=== PATIENT | female | born 1965 | race Caucasian/White ===

== ENCOUNTER → 2018-09-25 07:02 | Outpatient (CLI) | payer MEDICAID, SELFPAY ==
--- NOTE | 2018-09-25 10:33 | NEURO_ITS ---
NCS and/or EMG Patient Report Ordering Doctor: Pranav Best DATE OF SERVICE: 09/25/18 This is a bilateral upper extremity nerve conduction study and a upper extremity EMG performed on this 53-year-old female with pain in her hands bilaterally worse on the right. She has a remote whiplash injury but no neck pain current ly. Current symptoms been present for more than 2 years. Bilateral upper extremity sensory and motor nerve conduction studies are performed. There is severe prolongation of the median motor responses bilaterally more so on the right side with preserved amplitudes and mildly slowed conduction velocities on the right. The sensory responses are also prolonged again worse on the right side. The ulnar motor and sensory and radial sensory responses are normal. The right median F wave is moderate to severely prolonged in the left median F wave is mildly prolonged. Right upper extremity needle electromyography is performed. Muscles evaluated included the first dorsal interosseous, abductor pollicis brevis, brachioradialis, biceps, triceps and deltoid muscles. The abductor pollicis brevis muscle did demonstrate large motor units with slight increased insertional activity. All other muscles demonstrated normal insertional activity with absence of pathologic spontaneous activity. Motor unit potential recruitment pattern and amplitude was otherwise normal. Impression: Abnormal electrophysiologic study consistent with carpal tunnel syndrome bilaterally, severe bilaterally but worse on the right side. There is no evidence of radiculopathy.
--- OUTSIDE RECORDS SUMMARY | 2018-11-27 07:10 | XMS RPT_ITS ---
:1965 Author Organization OHIP Care Team Providers Name Role Phone BRETT CAMPOS, MS. WYATT SKathryn Attending Unavailable BRETT CAMPOS, MS. WYATT S. Primary Care Unavailable BRETT AUTOMOTIVE SALESPERSON, MS. WYATT S. Attending Unavailable BRETT CAMPOS, MS. WYATT S. Primary Care Unavailable BRETT CAMPOS, MS. WYATT S. Attending Unavailable BRETT CAMPOS, MS. WYATT S. Primary Care Unavailable BRETT AUTOMOTIVE SALESPERSON, MS. WYATT S. Attending Unavailable BRETT AUTOMOTIVE SALESPERSON, MS. WYATT S. Primary Care Unavailable BRETT AUTOMOTIVE SALESPERSON, MS. WYATT S. Attending Unavailable BRETT CAMPOS, MS. WYATT S. Primary Care Unavailable Pranav Best Attending Unavailable Pranav Best Referring Unavailable Wyatt West TORTS LAW PROFESSOR-C Primary Care Unavailable PROBLEMS PROBLEMS DATE TYPE CONDITION / CODE ATTENDING STATUS SOURCE 02/13/2018 Admitting Other fatigue / BRETT CAMPOS, MS. Active [facility] Diagnosis R53.83(ICD-10) WYATT Logan Repository 02/13/2018 Admitting Encounter for BRETT CAMPOS MS. Active [facility] Diagnosis general adult WYATT Logan medical Repository examination without abnormal findings / Z00.00(ICD-10) 11/17/2017 Admitting Encounter for BRETT CAMPOS MS. Active [facility] Diagnosis screening for WYATT Logan malignant Repository neoplasm of cervix / Z12.4(ICD-10) PROCEDURES PROCEDURES No Procedure Records FoundRESULTS RESULTS NCS AND/OR EMG Observed: 09/26/2018 Status: F Source: [facility] PATIENT 9:55 AM [facility] [place] [facility] Pulmonary Services/Neurology [address] [place] [address] MR#: [id number] Acct: [id number] Name: RADHA ARTIS Rep #: [id number] : 1965 53 From: Johnathon Nuno MD Referring Dr: Pranav Best MD Status: REG CLI Ordering Dr: Date: Location: [facility] Sex: F C NCS and/or EMG Patient Report Ordering Doctor: Pranav Best DATE OF SERVICE: 09/25/18 This is a bilateral upper extremity nerve conduction study and a upper extremity EMG performed on this 53-year-old female with pain in her hands bilaterally worse on the right. She has a remote whiplash injury but no neck pain currently. Current symptoms been present for more than 2 years. Bilateral upper extremity sensory and motor nerve conduction studies are performed. There is severe prolongation of the median motor responses bilaterally more so on the right side with preserved amplitudes and mildly slowed conduction velocities on the right. The sensory responses are also prolonged again worse on the right side. The ulnar motor and sensory and radial sensory responses are normal. The right median F wave is moderate to severely prolonged in the left median F wave is mildly prolonged. Right upper extremity needle electromyography is performed. Muscles evaluated included the first dorsal interosseous, abductor pollicis brevis, brachioradialis, biceps, triceps and deltoid muscles. The abductor pollicis brevis muscle did demonstrate large motor units with slight increased insertional activity. All other muscles demonstrated normal insertional activity with absence of pathologic spontaneous activity. Motor unit potential recruitment pattern and amplitude was otherwise normal. Impression: Abnormal electrophysiologic study consistent with carpal tunnel syndrome bilaterally, severe bilaterally but worse on the right side. There is no evidence of radiculopathy. 09/26/18 0955 <Electronically signed by Johnathon Nuno MD> Date Johnathon Nuno MD CC: Wyatt West NP-C; Johnathon Nuno MD; Pranav Best MD Date Dictated: 09/25/18 1020 Date Transcribed: 09/25/18 1020 Ripsaw Grader: NF Signed XR KNEE 4 VIEWS Observed: 08/15/2018 Status: F Source: [employer] RIGHT 9:54 AM [facility]OUNDATION REPOSITORY ORIGINAL RIGHT knee 4 views including tunnel and sunrise views hx: Pain COMPARISON: None Very mild narrowing of the medial joint compartment is evident. No other significant degenerative change seen. No fracture, dislocation or joint fluid seen. Interpreted By: Maxim Delgado MD Preliminary Report By: Maxim Delgado MD Electronically Signed By: Maxim Delgado MD Dictated Date: 08/15/2018 11:01:00 AM Prelim Date: 08/15/2018 11:01:00 AM Sign Date: 08/15/2018 11:01:31 AM VL VENOUS UNILATERAL Observed: 08/07/2018 Status: F Source: [employer] LOWER EXT FOR DVT 12:05 PM FOUNDATION REPOSITORY ORIGINAL VL VENOUS UNILATERAL LOWER EXT FOR DVT LATERALITY: Right CLINICAL STATEMENT: pain COMPARISON: None TECHNIQUE: Duplex venous ultrasonography including color and spectral flow Doppler imaging was performed of the lower extremity, focusing on the deep venous system. FINDINGS: The common femoral, femoral, popliteal, gastrocnemius, posterior tibial, peroneal, and saphenous veins demonstrate wide patency, expected augmentation, and normal spectral waveforms. Incidentally noted is a varicose vein with thrombosis behind the knee. IMPRESSION: 1. No evidence of deep venous thrombosis. 2. Incidental thrombosed varicose vein behind the knee. Interpreted By: Dennis Pickard MD Preliminary Report By: Dennis Pickard MD Electronically Signed By: Dennis Pickard MD Dictated Date: 08/07/2018 4:16:58 PM Prelim Date: 08/07/2018 4:16:58 PM Sign Date: 08/07/2018 4:19:38 PM CBC Collected: 02/13/2018 Status: F Source: [facility] 10:01 [facility] REPOSITORY TYPE CODE TESTS RESULT OUT OF REFERENCE UNITS RANGE LAB WBC(LOINC) 4.60-10.80 10 3/mcL Low WBC 3.80 LAB RBCCT(LOINC 4.20-5.40 10 6/mcL ) RBC 4.22 LAB HGB(LOINC) 12.0-16.0 G/dL Hgb 13.2 LAB HCT(LOINC) 37.0-47.0 % Hct 38.0 LAB MCV(LOINC) 80.0-94.0 fL MCV 90.0 LAB MCH(LOINC) 27.0-31.2 pg High MCH 31.3 LAB MCHC(LOINC) 33.0-37.0 G/dL MCHC 34.8 LAB RDW(LOINC) 11.5-14.5 % RDW 12.7 LAB PLT(LOINC) 130-400 10 3/mcL Platelet 184 LAB MPV(LOINC) 7.4-10.4 fL MPV 8.7 Performed By: #### CBC, ADIFF, ANEU, LIPID, CMP, GFR, TSH #### [address] [address] .AUTO DIFF Collected: 02/13/2018 Status: F Source: [facility] 10:01 [facility] REPOSITORY TYPE CODE TESTS RESULT OUT OF REFERENCE UNITS RANGE LAB ROSAMARIA(LOINC) 37.0-80.0 % Neutrophil % 55.7 LAB LYM(LOINC) 10.0-50.0 % Lymphocyte % 31.9 LAB MON(LOINC) 1.7-13.0 % Monocyte % 9.5 LAB EO(LOINC) 0.0-7.0 % Eosinophil % 1.5 LAB BAS(LOINC) 0.0-2.5 % Basophil % 1.4 LAB ABLYM(LOIN 0.77-3.85 10 3/mcL C) Lymphocyte, 1.20 Absolute LAB CUCO(LOINC 0.15-1.00 10 3/mcL ) Monocyte, 0.40 Absolute LAB AEOS(LOINC 0.00-0.40 10 3/mcL ) Eosinophil, 0.10 Absolute LAB ABAS(LOINC 0.00-0.19 10 3/mcL ) Basophil, 0.10 Absolute Performed By: #### CBC, ADIFF, ANEU, LIPID, CMP, GFR, TSH #### [address] [place], [place] [address] .NEUABS Collected: 02/13/2018 Status: F Source: [facility] 10:01 AM [facility] REPOSITORY TYPE CODE TESTS RESULT OUT OF REFERENCE UNITS RANGE LAB ANEU(LOINC) 2.85-6.16 10 3/mcL Low Neutrophil, 2.10 Absolute Performed By: #### CBC, ADIFF, ANEU, LIPID, CMP, GFR, TSH #### [facility] [address] [place], [place] [address] LIPID Collected: 02/13/2018 Status: F Source: [facility] 10:01 AM [facility] REPOSITORY TYPE CODE TESTS RESULT OUT OF REFERENCE UNITS RANGE LAB CHOL(LOINC 131-200 mg/dL ) Cholesterol 161 Result Comment: Cholesterol Reference Interval: Less than 200 Desirable 200-239 Borderline high risk 240 and above High risk LAB TRIG(LOINC) 40-150 mg/dL Triglycerides Low 36 Result Comment: Triglyceride Reference Interval: Less than 150 Normal 150-199 Borderline high risk 200-499 High risk 500 or higher Very high risk LAB HD(LOINC) 35-90 mg/dL HDL Cholesterol 81 Result Comment: HDL Reference Interval: Less than 40 Low - high risk 60 or above Optimal/lowers risk LAB LDL(LOINC) 0-130 mg/dL LDL Cholesterol 73 Result Comment: LDL is a calculated result and requires a 12-hr fast. LDL Reference Interval: Less than 100 Optimal 100-129 Near or above optimal 130-159 Borderline high risk 160-189 High risk 190 and above Very high risk Performed By: #### CBC, ADIFF, ANEU, LIPID, CMP, GFR, TSH #### [address] [place], [place] [address] CMP Collected: 02/13/2018 Status: F Source: [facility] 10:01 AM [facility] REPOSITORY TYPE CODE TESTS RESULT OUT OF REFERENCE UNITS RANGE LAB GLU(LOINC) 70-105 mg/dL Glucose Level 93 LAB NA(LOINC) 136-146 mEq/L Sodium Level 140 LAB K(LOINC) 3.5-5.1 mEq/L Potassium Level 4.0 LAB CL(LOINC) 98-107 mEq/L Chloride 102 LAB CO2(LOINC) 22-29 mEq/L CO2 High 30 LAB EBAL(LOINC mEq/L ) Electrolyte Balance 8.0 LAB BUN(LOINC) 7.0-18.0 mg/dL BUN 9.3 LAB CRE(LOINC) 0.6-1.2 mg/dL Creatinine Lvl (s) 0.7 LAB BC(LOINC) 7-27 ratio BUN/Creatinine 13 Ratio LAB CA(LOINC) 8.4-10.2 mg/dL Calcium Lvl 9.3 LAB PROT(LOINC 6.0-8.3 G/dL ) Total Protein 6.9 LAB ALB(LOINC) 3.5-5.0 G/dL Albumin Level 4.6 LAB GLB(LOINC) G/dL Globulin 2.3 LAB AG(LOINC) 1.1-2.5 ratio A/G Ratio 2.0 LAB BILT(LOINC 0.2-1.0 mg/dL ) Bili Total 0.4 LAB AP(LOINC) 40-135 IU/L Alk Phos 43 LAB AST(LOINC) 10-40 IU/L AST/SGOT 18 LAB ALT(LOINC) 10-35 IU/L ALT/SGPT 13 Performed By: #### CBC, ADIFF, ANEU, LIPID, CMP, GFR, TSH #### [place] [address] .GFR Collected: 02/13/2018 Status: F Source: [facility] 10:01 AM [facility] REPOSITORY TYPE CODE TESTS RESULT OUT OF REFERENCE UNITS RANGE LAB GFRAA(LOINC ml/min/1.73 ) sqm GFR 114 Faroese Result Comment: GFR Population mean for , Non- Americans Ages 20-29 = 116 mL/min/1.73 sq.m. Ages 30-39 = 107 mL/min/1.73 sq.m. Ages 40-49 = 99 mL/min/1.73 sq.m. Ages 50-59 = 93 mL/min/1.73 sq.m. Ages 60-69 = 85 mL/min/1.73 sq.m. Ages 70+ = 75 mL/min/1.73 sq.m. Chronic Kidney Disease: Less than 60 mL/min/1.73 square meters End Stage Renal Disease: Less than 15 mL/min/1.73 square meters LAB GFRNO(LOINC) ml/min/1.73sqm GFR Non- >60 Result Comment: GFR Population mean for , Non- Americans Ages 20-29 = 116 mL/min/1.73 sq.m. Ages 30-39 = 107 mL/min/1.73 sq.m. Ages 40-49 = 99 mL/min/1.73 sq.m. Ages 50-59 = 93 mL/min/1.73 sq.m. Ages 60-69 = 85 mL/min/1.73 sq.m. Ages 70+ = 75 mL/min/1.73 sq.m. Chronic Kidney Disease: Less than 60 mL/min/1.73 square meters End Stage Renal Disease: Less than 15 mL/min/1.73 square meters Performed By: #### CBC, ADIFF, ANEU, LIPID, CMP, GFR, TSH #### [address] [place], [place] [address] TSH Collected: 02/13/2018 Status: F Source: [facility] 10:01 AM [facility] REPOSITORY TYPE CODE TESTS RESULT OUT OF RANGE REFERENCE UNITS LAB TSH(LOINC) 0.27-4.20 mcIU/mL TSH 4.06 Performed By: #### CBC, ADIFF, ANEU, LIPID, CMP, GFR, TSH #### [address] [address] TACK COVERER CYTOLOGY REPORT Observed: 11/17/2017 Status: F Source: [facility] 10:47 AM [facility] REPOSITORY . Pathology Reports Accession: Collected Date/Time: Received Date/Time: Pathologist: [id number] 11/17/2017 10:47 EDT 11/17/2017 18:00 EDT [employer] Sandblaster Apprentice Cytology Report SPECIMEN: Specimen Description: Liquid Prep Reflex ASCUS Specimen: Vaginal Screening or Diagnostic: Screening RELEVANT HISTORY: LMP: 12-06-11 Hysterectomy: Yes [id number] SPECIMEN ADEQUACY: SATISFACTORY FOR EVALUATION TRANSFORMATION ZONE COMPONENT ABSENT DUE TO PREVIOUS HYSTERECTOMY INTERPRETATION/RESULTS: NEGATIVE FOR INTRAEPITHELIAL LESION OR MALIGNANCY Electronically Signed by Pathology report verified by [facility] Screened by: KK Electronically signed by Ngoc SNYDER (ASCP) Sign-Out Date: 11/22/2017 11:46 Performing Lab: [facility], [address] [place] [address] Disclaimer The Pap test is a screening test for cervical cancer. As evidenced by published data, it is subject to both inherent false negative and false positive results. Your patient's results should be interpreted in context with pertinent clinical history including gynecological examination. Performed By: #### GYCR #### [facility] [address] [place] [address] [place] MAMMOGRAM SCREENING Observed: 11/17/2017 Status: F Source: [facility] BILATERAL W/DIMPLE 9:30 AM FOUNDATION REPOSITORY ORIGINAL FROM: [facility] [address] [address] PROCEDURE FOR: RADHA ARTIS [address] [place] [address] Home: PID#: [id number] Exam#: [id number] : 1965 Age: 52 TO: WYATT WEST TORTS LAW PROFESSOR-C [address] [place] [address] #[id number] DIGITAL SCREENING MAMMOGRAM 3D/2D WITH CAD WITH MEDIOLATERAL OBLIQUE CRANIOCAUDAL: 11/17/2017 Comparison is made to exams dated: 11/24/2016 mammogram, 11/17/2016 mammogram, 12/11/2014 ultrasound, and 12/10/2014 mammogram - [facility]. The tissue of both breasts is extremely dense. Current study was also evaluated with a Computer Aided Detection (CAD) system. There are benign calcifications in both breasts. There also is a biopsy clip in the left breast. No significant masses, calcifications, or other findings are seen in either breast. There has been no significant interval change. IMPRESSION: BENIGN There is no mammographic evidence of malignancy. A 1 year screening mammogram is recommended. DAVID DURÁN MD cc/penrad:11/17/2017 16:37:39 Flight Inspector: CHAZ NUNES (Rosendo)(M), [facility] letter sent: Normal BI-RADS 1&2 Mammogram BI-RADS: 2 Benign ALLERGIES ALLERGIES DATE TYPE / CODE NAME / CODE REACTION SEVERITY SOURCE 01/01/2015 Drug No Known Unknown [facility] Allergy/4160 Allergies/F00 Hospital 24758(SNOMED 6150106(RXNOR Repository CT) M) ENCOUNTERS ENCOUNTERS ADMIT/DISCHARGE ACCOUNT NUMBER ADMITTING ENCOUNTER LOCATION SOURCE CLASS 09/25/2018 [id number] Ambulatory General acute hospital ding:PSN Repository 08/15/2018/08/15/20 [id number] Ambulatory B[facility] Repository 08/07/2018/08/07/20 [id number] Ambulatory BBuilding:[facility] Repository 02/13/2018/02/18/20 [id number] Ambulatory [address] ding:DROP [facility] Repository 11/17/2017/11/22/19 [id number] Ambulatory [address] ding:DROP [facility] Repository 11/17/2017/11/18/19 [id number] Ambulatory [address] ding:RAD [facility] Repository PAYERS PAYERS ENCOUNTER GUARANTOR PAYER SUBSCRIBER SOURCE 09/25/2018 RADHA A Primary RADHA D[address] [place] [address] [address] [facility] [id number], [place] PLANPolicy Number: Repository [id number]: 330 [id number] () Date:[id number] [address] [place] [address]GB: 09/25/2018 [facility]:SELF PAY [facility] Number: Effective Repository Date:2018 08/15/2018 [facility] E HEALTH PLANPolicy [id number] [place] [address] Number: [place] [id number], [place] [address] Date:2018-08-15 [id number]: [phone] [email or web address] [id number] [phone] el: [phone]) Name:X[address] () [address] [place] [address] [place] [phone] (WP) (HP)Tel: [phone]: (wp) [phone] 08/07/2018 RADHA A Primary [facility]:NASRIN HOBSON: [facility] E HEALTH PLANPoly [id number] Repository [facility] Number: Jose [address] [place] [id number] [address]~ghanshyam Date:2018-08-07Tel: [phone] [email or web address] [phone] el: [phone]) Name:[address] (HP) ) [phone] [address], [place] [phone] (WP) (HP)Tel: [phone]: ([phone] 02/13/2018 RADHA Dae Primary [facility]ae [facility]:NASRIN HOBSON: [facility] [id number] Repository [facility] Number: Jose [address] [place] [id number] [place], [place] [address]Fpr: ([phone]) Date:2018-02-13Tel: [id number] [phone] (HP)Tel: [phone]) Name:[address] (HP) (WP) [address], [place] [phone] (WP) [phone]: 11/17/2017 RADHA Dae Primary RADHA Dae [facility] Insurance:NASRIN HOBSON: [facility] E HEALTH PLANPolboone [facility] hospital [id number] Repository [facility] Number: [address] [place] [id number] [place], [place] [address]Vzu: [phone]) Date:2017-11-1791607Xzl: 2022-13-63Ksva [phone] (HP)Tel: [phone]) Name:[address] (HP) (WP) [address]ME[address] [place] [phone] (WP) [phone]: 11/17/2017 [facility]: [facility] [id number] E HEALTH PLANPolboone county hospital [id number] [facility] Number: Jose [place], [place] [id number] WELIA [place], [place] [address]Idf: ([phone]) Date:2017-10-0298333Mrp: [id number] [phone] (HP)Tel: [phone]) Name:CONNERO Raciel (HP) (WP) 5[address]ME[address]HANA [place] [phone] (WP) [phone]:
== END ==
PROVIDERS: Family Provider Nurse Practitioner Primary Care; PCP Nurse Practitioner Primary Care; Referring Provider Specialist; Visit Provider Specialist
DX: G56.01 Carpal tunnel syndrome, right upper limb (principal)
CPT/HCPCS: 95886; 95911

== ENCOUNTER 2018-11-07 05:56 | Day surgery (SDC) | payer MEDICAID, SELFPAY ==
[2015-01-01 22:55] VITALS: BMI 19.8
--- NOTE | 2018-10-31 20:54 | HP.PCM_ITS ---
History and Physical DATE OF SURGERY: 1. Right carpal tunnel release: November 07, 2018 2. Left carpal tunnel release: November 28, 2018 SCHEDULED PROCEDURE: right carpal tunnel release followed by left carpal tunnel release HISTORY OF PRESENT ILLNESS: This is a 52-year-old female who has been having ongoing Bilateral hand pain for approximately 2 years. Patient is right-hand dominant. Patient states she does have pain in bilateral hands but the numbness and tingling is worse than the pain. Pain does awaken her at night. Patient works as a home health aide. With activity her pain can reach as high as an 8/10. Patient states her symptoms with numbness and tingling and pain are increased with repetitive use and activities of daily living. Patient has tried racing at nighttime with minimal relief. Patient underwent an EMG nerve conduction study exam a [facility] which does reveal bilateral severe carpal tunnel syndrome with the right being worse than the left. No evidence of radiculopathy. After failing conservative measures and discussing treatment options with Dr. Pranav Best, the patient would like to proceed with a right carpal tunnel release on November 07, 2018 followed by a left carpal tunnel release on November 28, 2018. Patient denies any chest pain, shortness of breath, fevers chills, recent infections. REVIEW OF SYSTEMS: ROS: Const: Denies change in appetite, fever,or weight change. CV: Denies chest pain, heart murmur and irregular heartbeat. Resp: Denies cough, pneumonia, SOB, tuberculosis and wheezing. GI: Denies constipation, diarrhea, difficulty swallowing, heartburn, nausea, bloody stools and vomiting. : Urinary: denies incontinence. Musculo: Denies leg swelling, limp, trouble walking and weakness. Skin: Denies Raynaud's, history of shingles and tattoo. Neuro: Reports numbness/tingling but denies ambulatory dysfunction, dizziness and tremor. Psych: Denies anxiety, insomnia and stress. Georges/Lymph: Denies anemia, bleeding/bruising tendency and past transfusion. Reviewed, no changes. PAST MEDICAL HISTORY: Advance Care Plan: No Advance Directives Effective Date: 08/30/2018 PMH: Medical Problems: No Current Problems Accidents: None Surgical Hx: Hysterectomy LT Thumb Trigger Release - (12/02/2016) [email or web address] Anesthesia Complications: Nausea Assistive Devices: None Reviewed, no changes. 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 Personal Habits: Cigarette Use: Never Smoked Cigarettes.Alcohol: Denies use.Drug Use: Denies Use.Enjoy Exercising: Daily. Reviewed and updated. VITALS: Ht: 64 Wt: 115lb Wt k.164 BMI: 19.7 BP: 122/56 Pulse: 74 Resp: 16 T: 98.2 T: 36.8C ALLERGIES: No Known Drug Allergy MEDICATIONS: Vitamin C 1000 mg one PO daily, Iron 325 (65 Fe) MG 1 by mouth every day, Ultram 50 mg 1-2 by mouth q6 hour as needed pain PRE-OP EXAM: General appearance:NORMAL Other: Eyes: Conjunctivae and lids: NORMAL Pupils: ERR Ears, Nose, Mouth, and Throat: NORMAL Other: Inspection of lips, teeth and gums: NORMAL Other: Neck: Examination of neck: no masses noted. Respiratory: Assessment of respiratory effort: NORMAL Other: Auscultation of lungs: clear to auscultation no wheezes, rhonchi or rales. Cardiovascular: Auscultation of heart: regular rate and rhythm, no murmurs, gallops or rubs. Gastrointestinal: Exam of abdomen: soft, nontender, nondistended bowel sounds present. PHYSICAL EXAMINATION: Examination of bilateral hands are cool to touch without erythema or signs of infection. There is no appreciable thenar atrophy bilaterally. Patient has full composite fist and full extension of fingers. Good range of motion of bilateral wrists. Patient has positive Diana exam bilaterally with greater on the right versus the left, positive carpal compression bilaterally greater on the right versus left, positive mild Tinel's bilaterally. 2 point discrimination is 5 mm throughout all digits bilaterally. IMAGING STUDIES: EMG nerve conduction study exam was obtained at [facility] on September 25, 2018 which does reveal severe bilateral carpal tunnel syndrome with the right being worse than the left. IMPRESSION: 1. Severe right carpal tunnel syndrome 2. Severe left carpal tunnel syndrome PLAN: Dr. Pranav Best did discuss and review with the patient all treatment options including surgical versus nonsurgical options. Patient does wish to proceed with the above-stated procedure. Potential risks, benefits, and complications of the procedure were discussed in detail including but not limited to , infection, nerve and blood vessel damage, persistent pain, numbness, tingling, paresthesias, blood clot, pulmonary embolism, and requirement for possible further surgery. The patient expressed full understanding and has no further questions for the doctor. Patient does agree to proceed with the above-stated procedure and has signed the surgery consent form. This dictation was created using voice recognition software. Phonetic and/or grammatical errors may exist.. ___ I have re-examined the patient. There are no clinical changes since date of exam. ___ See progress notes for changes. ___ Dictated on admission Date: Time: Signature:
[2018-11-07] VITALS (8 sets, daily range): BP systolic 89–128; BP diastolic 66–89; PULSE 52–64; RESP 16–20; TEMP 36.6–36.9; O2SAT 97–99; BMI 19.1
[2018-11-07] MEDS: Cefazolin 1 GM/50 ML BAG IV (07:18)
[2018-11-07] MEDS: Bupivacaine Mpf 0.5% 30 ML VIAL (07:34)
[2018-11-07] MEDS: Ketorolac 30 MG/ML Syringe IV (08:06)
--- NOTE | 2018-11-07 08:07 | OP.PCM_ITS ---
Report of Operation Date of Procedure: 11/07/18 Pre-Operative Diagnosis: Right carpal tunnel syndrome Post-Operative Diagnosis: Right carpal tunnel syndrome Surgery/Procedure Performed:: Right carpal tunnel release Description of Surgical Findings:: Complete release transverse carpal ligament engineering analyst: None Type of Anesthesia:: Block,[place] Anesthesiologist: Quincy Wade Special Medications: Ancef Estimated Blood Loss (mL): 2 Fluids Replaced: 400 mL crystalloid Description of Procedure: Brief history operative indications: 53-year-old female patient wished to proceed with right open carpal tunnel release. After discussing risks and benefits including but not limited to blood loss, DVTs, PEs, neurovascular damage, infection, hematoma and general risk of anesthesia, the patient demonstrated understanding wish to proceed with right open carpal tunnel release Procedure: On the date of the procedure, the patient's right upper extremity was marked in the preoperative area. Patient was taken back to the operating room, where the tourniquet was placed on the right upper extremity. Patient was given light sedation. All bony prominences are identified well-padded. Anesthesia assumed control C-spine and airway and remained in control throughout the remainder the procedure. [place] block was administered by anesthesia. The right upper extremity was prepped in sterile fashion. Surgeon then scrub. Upon reentering the room, the right upper extremity was prepped in a standard orthopedic fashion. A timeout was called and everyone agreed upon the side, the site, the procedure to be performed, patient identity and antibiotics given. The incision was marked out. Incision was taken at the skin subtenons tissue fat down to fascia. Fascia was then lightly tethered until the median nerve was visible. A Austin was placed proximally and distally, and then scissors were placed proximally and distally to release the transverse carpal ligament. During the release the others were never completely closed. The Austin was then placed proximally and distally once more to verify the transverse carpal ligament had been adequately released. The wound was then copiously irrigated out with normal saline. Wound was then closed using 3-0 nylon suture. 10 cc of 50-50 mixture of 1% lidocaine and 0.5% Sensorcaine without epinephrine injection was given. Xeroform dressing was placed, sterile dressing was placed, compressive dressing was placed. Tourniquet was let down. Volar splint was placed. Patient was awakened by anesthesia and transferred to the PACU for recovery. Postoperative plan: The patient will follow up in 2 weeks for removal splint removal sutures. At that time if they are doing well they will follow-up as needed. - Complications NONE - Admit VTE Documentation VTE Present on Admission: No VTE Mechan Device Prophylaxis: SCD's, Thigh High JUSTIN Hose VTE Pharm Prophylaxis ordered?: No Reason prophylaxis not ordered:: Treatment Not Indicated
== END 2018-11-07 10:08 | disposition home or self-care (01) ==
LOC: SDC 05:56 → AC 05:56
PROVIDERS: Family Provider Nurse Practitioner Primary Care; PCP Nurse Practitioner Primary Care; Referring Provider Specialist; Visit Provider Specialist
PROC: (CPT 64721; principal; 2018-11-07 07:15)
DX: G56.03 Carpal tunnel syndrome, bilateral upper limbs (principal); Z85.828 Personal history of other malignant neoplasm of skin
CPT/HCPCS: 64721; J7120; J2405

== ENCOUNTER 2018-11-28 05:42 | Day surgery (SDC) | payer MEDICAID, SELFPAY ==
--- NOTE | 2018-10-31 20:55 | PCM.HP.BLA ---
History and Physical DATE OF SURGERY: 1. Right carpal tunnel release: November 07, 2018 2. Left carpal tunnel release: November 28, 2018 SCHEDULED PROCEDURE: right carpal tunnel release followed by left carpal tunnel release HISTORY OF PRESENT ILLNESS: This is a 52-year-old female who has been having ongoing Bilateral hand pain for approximately 2 years. Patient is right-hand dominant. Patient states she does have pain in bilateral hands but the numbness and tingling is worse than the pain. Pain does awaken her at night. Patient works as a home health aide. With activity her pain can reach as high as an 8/10. Patient states her symptoms with numbness and tingling and pain are increased with repetitive use and activities of daily living. Patient has tried racing at nighttime with minimal relief. Patient underwent an EMG nerve conduction study exam a [facility] which does reveal bilateral severe carpal tunnel syndrome with the right being worse than the left. No evidence of radiculopathy. After failing conservative measures and discussing treatment options with Dr. Pranav Best, the patient would like to proceed with a right carpal tunnel release on November 07, 2018 followed by a left carpal tunnel release on November 28, 2018. Patient denies any chest pain, shortness of breath, fevers chills, recent infections. REVIEW OF SYSTEMS: ROS: Const: Denies change in appetite, fever,or weight change. CV: Denies chest pain, heart murmur and irregular heartbeat. Resp: Denies cough, pneumonia, SOB, tuberculosis and wheezing. GI: Denies constipation, diarrhea, difficulty swallowing, heartburn, nausea, bloody stools and vomiting. : Urinary: denies incontinence. Musculo: Denies leg swelling, limp, trouble walking and weakness. Skin: Denies Raynaud's, history of shingles and tattoo. Neuro: Reports numbness/tingling but denies ambulatory dysfunction, dizziness and tremor. Psych: Denies anxiety, insomnia and stress. Georges/Lymph: Denies anemia, bleeding/bruising tendency and past transfusion. Reviewed, no changes. PAST MEDICAL HISTORY: Advance Care Plan: No Advance Directives Effective Date: 08/30/2018 PMH: Medical Problems: No Current Problems Accidents: None Surgical Hx: Hysterectomy LT Thumb Trigger Release - (12/02/2016) [email or web address] Anesthesia Complications: Nausea Assistive Devices: None Reviewed, no changes. 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 Personal Habits: Cigarette Use: Never Smoked Cigarettes.Alcohol: Denies use.Drug Use: Denies Use.Enjoy Exercising: Daily. Reviewed and updated. VITALS: Ht: 64 Wt: 115lb Wt k.164 BMI: 19.7 BP: 122/56 Pulse: 74 Resp: 16 T: 98.2 T: 36.8C ALLERGIES: No Known Drug Allergy MEDICATIONS: Vitamin C 1000 mg one PO daily, Iron 325 (65 Fe) MG 1 by mouth every day, Ultram 50 mg 1-2 by mouth q6 hour as needed pain PRE-OP EXAM: General appearance:NORMAL Other: Eyes: Conjunctivae and lids: NORMAL Pupils: ERR Ears, Nose, Mouth, and Throat: NORMAL Other: Inspection of lips, teeth and gums: NORMAL Other: Neck: Examination of neck: no masses noted. Respiratory: Assessment of respiratory effort: NORMAL Other: Auscultation of lungs: clear to auscultation no wheezes, rhonchi or rales. Cardiovascular: Auscultation of heart: regular rate and rhythm, no murmurs, gallops or rubs. Gastrointestinal: Exam of abdomen: soft, nontender, nondistended bowel sounds present. PHYSICAL EXAMINATION: Examination of bilateral hands are cool to touch without erythema or signs of infection. There is no appreciable thenar atrophy bilaterally. Patient has full composite fist and full extension of fingers. Good range of motion of bilateral wrists. Patient has positive Diana exam bilaterally with greater on the right versus the left, positive carpal compression bilaterally greater on the right versus left, positive mild Tinel's bilaterally. 2 point discrimination is 5 mm throughout all digits bilaterally. IMAGING STUDIES: EMG nerve conduction study exam was obtained at [facility] on September 25, 2018 which does reveal severe bilateral carpal tunnel syndrome with the right being worse than the left. IMPRESSION: 1. Severe right carpal tunnel syndrome 2. Severe left carpal tunnel syndrome PLAN: Dr. Pranav Best did discuss and review with the patient all treatment options including surgical versus nonsurgical options. Patient does wish to proceed with the above-stated procedure. Potential risks, benefits, and complications of the procedure were discussed in detail including but not limited to , infection, nerve and blood vessel damage, persistent pain, numbness, tingling, paresthesias, blood clot, pulmonary embolism, and requirement for possible further surgery. The patient expressed full understanding and has no further questions for the doctor. Patient does agree to proceed with the above-stated procedure and has signed the surgery consent form. This dictation was created using voice recognition software. Phonetic and/or grammatical errors may exist.. ___ I have re-examined the patient. There are no clinical changes since date of exam. ___ See progress notes for changes. ___ Dictated on admission Date: Time: Signature:
[2018-11-07 06:13] VITALS: BMI 19.1
--- NOTE | 2018-11-21 22:23 | PCM.HP.BLA ---
History and Physical DATE OF SURGERY: 11/28/2018 SCHEDULED PROCEDURE: Left carpal tunnel release and Left ring finger trigger finger release HISTORY OF PRESENT ILLNESS: This is a 52-year-old female who has been having ongoing bilateral hand pain for 2 years. Patient also recently is having pain in her left ring finger with triggering. Patient underwent a right carpal tunnel release on November 07, 2018. Patient is doing well from this procedure. Patient states the pain does continue to wake her up at nighttime on the left hand. Pain can reach as high as an 8/10. She has increased numbness and tingling with repetitive use. Patient has tried nighttime bracing with only minimal relief. Patient has had a previous EMG nerve conduction study exam which does reveal severe carpal tunnel syndrome on the left. Patient states over the past several weeks she has been having triggering in the left ring finger. She has pain over the A1 celina. Patient has had a previous right thumb trigger finger release [place] [address] Pranav Best. She is having similar symptoms but on the left ring finger. Patient denies any new trauma or injury to the left ring finger. After failing conservative measures and discussing treatment options, the patient would like to proceed with a left carpal tunnel release and left trigger finger release. Patient denies any recent chest pain, shortness of breath, fevers chills, or recent infections. REVIEW OF SYSTEMS: ROS: Const: Denies change in appetite, fever,or weight change. CV: Denies chest pain, heart murmur and irregular heartbeat. Resp: Denies cough, pneumonia, SOB, tuberculosis and wheezing. GI: Denies constipation, diarrhea, difficulty swallowing, heartburn, nausea, bloody stools and vomiting. : Urinary: denies incontinence. Musculo: Denies leg swelling, limp, trouble walking and weakness. Skin: Denies Raynaud's, history of shingles and tattoo. Neuro: Reports numbness/tingling but denies ambulatory dysfunction, dizziness and tremor. Psych: Denies anxiety, insomnia and stress. Georges/Lymph: Denies anemia, bleeding/bruising tendency and past transfusion. Reviewed, no changes. PAST MEDICAL HISTORY: Advance Care Plan: No Advance Directives Effective Date: 08/30/2018 PMH: Medical Problems: No Current Problems Accidents: None Surgical Hx: Hysterectomy LT Thumb Trigger Release - (12/02/2016) [email or web address] - (11/07/2018) SAW @ [facility] Anesthesia Complications: Nausea Assistive Devices: None Reviewed and updated. 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 Personal Habits: Cigarette Use: Never Smoked Cigarettes.Alcohol: Denies use.Drug Use: Denies Use.Enjoy Exercising: Daily. Reviewed, no changes. VITALS: Ht: 64 Wt: 115lb Wt k.164 BMI: 19.7 BP: 110/76 Pulse: 70 Resp: 16 T: 97.4 T: 36.3C ALLERGIES: No Known Drug Allergy MEDICATIONS: Vitamin C 1000 mg one PO daily, Iron 325 (65 Fe) MG 1 by mouth every day PRE-OP EXAM: General appearance:NORMAL Other: Eyes: Conjunctivae and lids: NORMAL Pupils: ERR Ears, Nose, Mouth, and Throat: NORMAL Other: Inspection of lips, teeth and gums: NORMAL Other: Neck: Examination of neck: no masses noted. Respiratory: Assessment of respiratory effort: NORMAL Other: Auscultation of lungs: clear to auscultation no wheezes, rhonchi or rales. Cardiovascular: Auscultation of heart: regular rate and rhythm, no murmurs, gallops or rubs. Gastrointestinal: Exam of abdomen: soft, nontender, nondistended bowel sounds present. PHYSICAL EXAMINATION: Examination of left hand is cool to touch without erythema or signs of infection. Patient has tenderness to palpation over the left ring finger A1 celina. There is positive crepitus and catching left ring finger. Sensation intact to light touch. Capillary refill less than 2 seconds. Pulp to palm LRF. Remaining A1 pulleys left hand nontender to palpation. There is no appreciable thenar atrophy. Patient has full composite fist and full extension of fingers. Good range of motion of left wrist. Patient has positive phalens exam left, positive carpal compression left, positive mild Tinel's on left. 2 point discrimination is 5 mm throughout all digits on left. IMAGING STUDIES: EMG nerve conduction study exam was obtained at [facility] on September 25, 2018 which does reveal severe bilateral carpal tunnel syndrome with the right being worse than the left. IMPRESSION: 1. Severe left carpal tunnel syndrome 2. Left Ring finger stenosing tenosynovitis 3. Status post right carpal tunnel release on November 07, 2018 PLAN: Dr. Pranav Best did discuss and review with the patient all treatment options including surgical versus nonsurgical options. Patient does wish to proceed with the above-stated procedure. Potential risks, benefits, and complications of the procedure were discussed in detail including but not limited to , infection, nerve and blood vessel damage, persistent pain, numbness, tingling, paresthesias, blood clot, pulmonary embolism, and requirement for possible further surgery. The patient expressed full understanding and has no further questions for the doctor. Patient does agree to proceed with the above-stated procedure and has signed the surgery consent form. This dictation was created using voice recognition software. Phonetic and/or grammatical errors may exist. ___ I have re-examined the patient. There are no clinical changes since date of exam. ___ See progress notes for changes. ___ Dictated on admission Date: Time: Signature:
[2018-11-28] VITALS (9 sets, daily range): BP systolic 92–117; BP diastolic 62–90; PULSE 52–62; RESP 16; TEMP 36.1–37.6; O2SAT 99–100; BMI 20.5
[2018-11-28] MEDS: Cefazolin 1 GM/50 ML BAG IV (07:14)
[2018-11-28] MEDS: Bupivacaine Mpf 0.5% 30 ML VIAL (07:41)
[2018-11-28] MEDS: Ketorolac 30 MG/ML Syringe IV (08:01)
--- NOTE | 2018-11-28 08:05 | PCM.OPRPT ---
Report of Operation Date of Procedure: 11/28/18 Pre-Operative Diagnosis: Left carpal tunnel syndrome. Left ring trigger finger Post-Operative Diagnosis: Left carpal tunnel syndrome. Left ring trigger finger Surgery/Procedure Performed:: Left carpal tunnel release. Release left A1 celina, trigger finger Description of Surgical Findings:: Complete release whistle punk: None Type of Anesthesia:: Block,[place] Anesthesiologist: Quincy Wade Special Medications: Ancef Estimated Blood Loss (mL): 2 Fluids Replaced: Crystalloid Description of Procedure: Brief history operative indications: 53-year-old female with history of left carpal tunnel syndrome and left ring trigger finger 8 patient wished to proceed with left open carpal tunnel release left ring A1 celina release. After discussing risks and benefits including but not limited to blood loss, DVTs, PEs, neurovascular damage, infection, hematoma and general risk of anesthesia, the patient demonstrated understanding wish to proceed with left open carpal tunnel release Procedure: On the date of the procedure, the patient's left upper extremity and ring finger were marked in the preoperative area. Patient was taken back to the operating room, where the tourniquet was placed on the left upper extremity. Patient was given light sedation. All bony prominences are identified well-padded. Anesthesia assumed control C-spine and airway and remained in control throughout the remainder the procedure. Sobia block was administered by anesthesia. The left upper extremity was prepped in sterile fashion. Surgeon then scrub. Upon reentering the room, the left upper extremity was prepped in a standard orthopedic fashion. A timeout was called and everyone agreed upon the side, the site, the procedure to be performed, patient identity and antibiotics given. The incision was marked out. Over the palm and ring finger Trigger finger incision was taken at the skin. Scissors were used to bluntly dissect until the A1 celina was identified. A1 celina was incised in a longitudinal fashion and completely released leaving an ulnarly based flap. The ring digit was then taken through range of motion and no triggering was noted. Patient was awakened from the light sedation by anesthesia and the finger was actively taken through range of motion multiple times with no triggering. Wound was copiously irrigated out with normal saline. Incision was closed with 3-0 nylon. Carpal tunnel incision was taken at the skin subtenons tissue fat down to fascia. Fascia was then lightly tethered until the median nerve was visible. A Newport was placed proximally and distally, and then scissors were placed proximally and distally to release the transverse carpal ligament. During the release the others were never completely closed. The Newport was then placed proximally and distally once more to verify the transverse carpal ligament had been adequately released. The wound was then copiously irrigated out with normal saline. Wound was then closed using 3-0 nylon suture. 10 cc of 50-50 mixture of 1% lidocaine and 0.5% Sensorcaine without epinephrine injection was given. Xeroform dressing was placed, sterile dressing was placed, compressive dressing was placed. Tourniquet was let down. Volar splint was placed. Patient was awakened by anesthesia and transferred to the PACU for recovery. Postoperative plan: The patient will follow up in 2 weeks for removal splint removal sutures. At that time if they are doing well they will follow-up as needed. - Complications No intraoperative complications - Admit VTE Documentation VTE Present on Admission: No VTE Mechan Device Prophylaxis: SCD's VTE Pharm Prophylaxis ordered?: No Reason prophylaxis not ordered:: Treatment Not Indicated
--- NOTE | 2018-11-28 08:09 | OP.PCM_ITS ---
Report of Operation Date of Procedure: 11/28/18 Pre-Operative Diagnosis: Left carpal tunnel syndrome. Left ring trigger finger Post-Operative Diagnosis: Left carpal tunnel syndrome. Left ring trigger finger Surgery/Procedure Performed:: Left carpal tunnel release. Release left A1 celina, trigger finger Description of Surgical Findings:: Complete release sandwich board carrier: None Type of Anesthesia:: Block,[place] Anesthesiologist: Quincy Wade Special Medications: Ancef Estimated Blood Loss (mL): 2 Fluids Replaced: Crystalloid Description of Procedure: Brief history operative indications: 53-year-old female with history of left carpal tunnel syndrome and left ring tri gger finger 8 patient wished to proceed with left open carpal tunnel release left ring A1 celina release. After discussing risks and benefits including but not limited to blood loss, DVTs, PEs, neurovascular damage, infection, hematoma and general risk of anesthesia, the patient demonstrated understanding wish to proceed with left open carpal tunnel release Procedure: On the date of the procedure, the patient's left upper extremity and ring finger were marked in the preoperative area. Patient was taken back to the operating room, where the tourniquet was placed on the left upper extremity. Patient was given light sedation. All bony prominences are identified well-padded. Anesthesia assumed control C-spine and airway and remained in control throughout the remainder the procedure. [place] block was administered by anesthesia. The left upper extremity was prepped in sterile fashion. Surgeon then scrub. Upon reentering the room, the left upper extremity was prepped in a standard ort hopedic fashion. A timeout was called and everyone agreed upon the side, the site, the procedure to be performed, patient identity and antibiotics given. The incision was marked out. Over the palm and ring finger Trigger finger incision was taken at the skin. Scissors were used to bluntly dissect until the A1 celina was identified. A1 celina was incised in a longitudinal fashion and completely released leaving an ulnarly based flap. The ring digit was then taken through range of motion and no triggering was noted. Patient was awakened from the light sedation by anesthesia and the finger was actively taken through range of motion multiple times with no triggering. Wound was copiously irrigated out with normal saline. Incision was closed with 3-0 nylon. Carpal tunnel incision was taken at the skin subtenons tissue fat down to fascia. Fascia was then lightly tethered until the median nerve was visible. A [place] was placed proximally and distally, and then scissors were placed proximally and distally to release the transverse carpal ligament. During the release the others were never completely closed. The [place] was then placed proximally and distally once more to verify the transverse carpal ligament had been adequately released. The wound was then copiously irrigated out with normal saline. Wound was then closed using 3-0 nylon suture. 10 cc of 50-50 mixture of 1% lidocaine and 0.5% Sensorcaine without epinephrine injection was given. Xeroform dressing was placed, sterile dressing was placed, compressive dressing was placed. Tourniquet was let down. Volar splint was placed. Patient was awakened by anesthesia and transferred to the PACU for recovery. Postoperative plan: The patient will follow up in 2 weeks for removal splint removal sutures. At that time if they are doing well they will follow-up as needed. - Complications No intraoperative complications - Admit VTE Documentation VTE Present on Admission: No VTE Mechan Device Prophylaxis: SCD's VTE Pharm Prophylaxis ordered?: No Reason prophylaxis not ordered:: Treatment Not Indicated
== END 2018-11-28 09:14 | disposition home or self-care (01) ==
LOC: SDC 05:42 → AC 05:43
PROVIDERS: Family Provider Nurse Practitioner Primary Care; PCP Nurse Practitioner Primary Care; Referring Provider Specialist; Visit Provider Specialist
PROC: (CPT 64721; principal; 2018-11-28 07:00)
DX: G56.02 Carpal tunnel syndrome, left upper limb (principal); M65.342 Trigger finger, left ring finger; G56.01 Carpal tunnel syndrome, right upper limb; Z85.828 Personal history of other malignant neoplasm of skin
CPT/HCPCS: 26055; 64721; J7120; J2405

== ENCOUNTER → 2019-01-09 10:01 | Outpatient (CLI) | payer MEDICAID, SELFPAY ==
[2018-11-28 06:07] VITALS: BMI 20.5
--- NOTE | 2019-01-09 10:04 | VDLE_ITS ---
Reason For Study: SWELLING RIGHT LEFT CFV is compressible, spontaneous, phasic, CFV is compressible, spontaneous, phasic, competent and demonstrates normal competent, and demonstrates normal augmentation. augmentation. FV is compressible, spontaneous, phasic, FV is compressible, spontaneous, phasic, competent and demonstrates normal competent and demonstrates normal augmentation. augmentation. POP V is compressible, spontaneous, phasic, POP V is compressible, spontaneous, phasic, competent and demonstrates normal competent and demonstrates normal augmentation. augmentation. T/P Trunk is compressible. T/P Trunk is compressible. PTV is compressible. PTV is compressible. RT PerV is compressible. LT PerV is compressible. RT GSV at SFJ is compressible and INCOMPETENT Left GSV at SFJ is compressible and appears for greater than .5 sec. competent. RT GSV above knee is compressible and is Left GSV above knee is compressible and INCOMPETENT for greater than .5 sec. appears competent. RT GSV below knee is NONCOMPRESSIBLE. Left GSV below knee is compressible and RT Varicose V are dilated and INCOMPETENT for competent. greater than .5 sec. Left SSV is compressible and competent. RT SSV is competent . Procedure Exam performed in department. Interpretation Summary 1. Bialteral no DVT. 2. Right thigh GSV with reflux and into branches. 3. Righ calf GSV with SVT. Ordering Physician: Luis Garcia Referring Physician: WYATT WEST Performed By: María Leayr, KWAME, RVT
== END ==
PROVIDERS: Family Provider Nurse Practitioner Primary Care; PCP Nurse Practitioner Primary Care; Referring Provider Surgery Vascular Surgery; Visit Provider Surgery Vascular Surgery
DX: M79.89 Other specified soft tissue disorders (principal); I87.2 Venous insufficiency (chronic) (peripheral); M79.609 Pain in unspecified limb; I83.90 Asymptomatic varicose veins of unspecified lower extremity
CPT/HCPCS: 93970

== ENCOUNTER 2019-04-24 05:37 | Day surgery (SDC) | payer MEDICAID, SELFPAY ==
[2018-11-28 06:07] VITALS: BMI 20.5
--- NOTE | 2019-04-12 13:15 | HP.PCM_ITS ---
History and Physical Patient Name: Kalyn Pedro : 1965 From: DUARTE ALEXANDER PA-C DATE OF SURGERY: 04/24/2019 SCHEDULED PROCEDURE: right thumb trigger finger release HISTORY OF PRESENT ILLNESS: Preoperative history and physical exam was performed on April 22, 2019. This is a 53-year-old female who has been having ongoing pain since December 2018 in the right thumb. Patient is right-hand dominant. Patient recently underwent in November a left carpal tunnel release and left ring finger trigger finger release. Patient also underwent a left trigger thumb release on December 02, 2016. She states after her previous surgery she began getting pain in the right thumb. It is now causing problems and locks all the time. Pain is increased with any direct pressure on the right hand. She denies numbness and tingling. Patient lists no medical problems. She denies any chest pain, shortness of breath, fevers chills, recent infections. After discussion with Dr. Pranav Best, the patient does wish to proceed with a right thumb trigger finger release. REVIEW OF SYSTEMS: ROS: Const: Denies change in appetite, fever,or weight change. CV: Denies chest pain, heart murmur and irregular heartbeat. Resp: Denies cough, pneumonia, SOB, tuberculosis and wheezing. GI: Denies constipation, diarrhea, difficulty swallowing, heartburn, nausea, bloody stools and vomiting. : Urinary: denies incontinence. Musculo: Denies leg swelling, limp, trouble walking and weakness. Skin: Denies Raynaud's, history of shingles and tattoo. Neuro: Reports numbness/tingling but denies ambulatory dysfunction, dizziness and tremor. Psych: Denies anxiety, insomnia and stress. Georges/Lymph: Denies anemia, bleeding/bruising tendency and past transfusion. Reviewed, no changes. PAST MEDICAL HISTORY: Advance Care Plan: No Advance Directives Effective Date: 08/30/2018 PMH: Medical Problems: No Current Problems Accidents: None Surgical Hx: Hysterectomy LT Thumb Trigger Release - (12/02/2016) [email or web address] - (11/07/2018) [facility] @ [facility] - (11/28/2018) SAW @ [facility] Anesthesia Complications: Nausea Assistive Devices: None Reviewed, no changes. 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 Personal Habits: Cigarette Use: Never Smoked Cigarettes.Alcohol: Denies use.Drug Use: Denies Use.Enjoy Exercising: Daily. Reviewed, no changes. VITALS: Ht: 64.5 Wt: 111lb 8oz Wt k.576 BMI: 18.8 BP: 100/70 Pulse: 60 Resp: 12 T: 98.3 T: 36.8C ALLERGIES: No Known Drug Allergy MEDICATIONS: Vitamin C 1000 mg one PO daily, Iron 325 (65 Fe) MG 1 by mouth every day PRE-OP EXAM: General appearance:NORMAL Other: Eyes: Conjunctivae and lids: NORMAL Pupils: ERR Ears, Nose, Mouth, and Throat: NORMAL Other: Inspection of lips, teeth and gums: NORMAL Other: Neck: Examination of neck: no masses noted. Respiratory: Assessment of respiratory effort: NORMAL Other: Auscultation of lungs: clear to auscultation no wheezes, rhonchi or rales. Cardiovascular: Auscultation of heart: regular rate and rhythm, no murmurs, gallops or rubs. Gastrointestinal: Exam of abdomen: soft, nontender, nondistended bowel sounds present. PHYSICAL EXAMINATION: On exam of the right hand it is cool to touch without erythema. There is tenderness to palpation over the A1 celina of the right thumb with a nodule in the tendon. Patient has limited flexion of the right thumb. Increased pain with any movement of the right thumb. Sensation intact to light touch. Capillary refills less than 2 seconds. IMPRESSION: 1. Right thumb stenosing tenosynovitis PLAN: Dr. Pranav Best did discuss and review with the patient all treatment options including surgical versus nonsurgical options. Patient does wish to proceed with the above-stated procedure. Potential risks, benefits, and complications of the procedure were discussed in detail including but not limited to , infection, nerve and blood vessel damage, persistent pain, numbness, tingling, paresthesias, blood clot, pulmonary embolism, and requirement for possible further surgery. The patient expressed full understanding and has no further questions for the doctor. Patient does agree to proceed with the above-stated procedure and has signed the surgery consent form. This dictation was created using voice recognition software. Phonetic and/or grammatical errors may exist. ___ I have re-examined the patient. There are no clinical changes since date of exam. ___ See progress notes for changes. ___ Dictated on admission Date: Time: Signature:
[2019-04-24] VITALS (7 sets, daily range): BP systolic 106–137; BP diastolic 81–91; PULSE 45–62; RESP 16; TEMP 36.3–36.7; O2SAT 96–100; BMI 19.3
[2019-04-24] MEDS: Lactated Ringers 1,000 ML 100 ML IV (06:27)
[2019-04-24] MEDS: Cefazolin 2 GM in 0.9% Normal Saline 100 ML IV (07:24)
[2019-04-24] MEDS: Bupivacaine Mpf 0.5% 30 ML VIAL (07:31)
[2019-04-24] MEDS: Ketorolac 30 MG/ML Syringe IV (08:08)
--- NOTE | 2019-04-24 08:47 | OP.PCM_ITS ---
Report of Operation Date of Procedure: 04/24/19 Pre-Operative Diagnosis: Right trigger thumb Post-Operative Diagnosis: Right trigger thumb Surgery/Procedure Performed:: Right trigger thumb release Description of Surgical Findings:: Complete release celina roof bolter helper: None Type of Anesthesia:: Block,[place] Anesthesiologist: Quincy Wade Special Medications: Ancef Estimated Blood Loss (mL): 1 Fluids Replaced: 400 mL Description of Procedure: On the day of the procedure patient's R upper extremity was marked in the preoperative area. Patient was brought back to the operating room where placed in the supine position with the R hand on the armboard. A [place] block was administered by anesthesia, tourniquet was placed up at that time. R Hand was prepped in a sterile fashion while the surgeon scrubbed. Upon reentering the room the R upper extremity was draped in a standard orthopedic fashion. Incision was marked out over the 1ST digit. Timeout was called and it was agreed upon the side and site, the procedure to be performed, antibiotic given and patient's identity. Incision was taken at the skin. Scissors were used to bluntly dissect until the A1 celina was identified. A1 celina was incised in a longitudinal fashion and completely released leaving an ulnarly based flap. The 1ST digit was then taken through range of motion and no triggering was noted and range of motion was improved. Wound was copiously irrigated out with normal saline. Incision was closed with 3-0 nylon. Xeroform dressing, sterile dressing, compressive dressing were placed tourniquet was let down. Patient was awakened by anesthesia and transferred to PACU for recovery. Postoperative plan: Patient can remove her dressing in 5 days. She'll follow up in 2 weeks for suture removal. She can begin range of motion as tolerated. - Complications No intraoperative complications - Admit VTE Documentation VTE Present on Admission: No VTE Mechan Device Prophylaxis: SCD's VTE Pharm Prophylaxis ordered?: No Reason prophylaxis not ordered:: Treatment Not Indicated
== END 2019-04-24 09:00 | disposition home or self-care (01) ==
LOC: SDC 05:38 → AC 05:45
PROVIDERS: Family Provider Nurse Practitioner Primary Care; PCP Nurse Practitioner Primary Care; Referring Provider Specialist; Visit Provider Specialist
PROC: (CPT 26055; principal; 2019-04-24 07:05)
DX: M65.311 Trigger thumb, right thumb (principal); Z90.710 Acquired absence of both cervix and uterus; Z85.828 Personal history of other malignant neoplasm of skin
CPT/HCPCS: 26055; J7120

== ENCOUNTER → 2019-07-02 09:51 | Outpatient (CLI) | payer MEDICAID, SELFPAY ==
[2019-04-24 06:15] VITALS: BMI 19.3
--- NOTE | 2019-07-02 09:54 | VDLE_ITS ---
Reason For Study: swelling, S/P Varithena RIGHT LEFT CFV is compressible, spontaneous, phasic, CFV is compressible, spontaneous, phasic, competent and demonstrates normal competent, and demonstrates normal augmentation. augmentation. FV is compressible, spontaneous, phasic, competent and demonstrates normal augmentation. POP V is compressible, spontaneous, phasic, competent and demonstrates normal augmentation. T/P Trunk is compressible. PTV is compressible. RT PerV is compressible. SFJ is competent and measures .59 x .77 cm. GSV is occluded from the groin to the knee S/P Varithena. SSV proximal calf is competent and measures .12 x .13 cm. Procedure Exam performed in department. The exam was diagnostic. A preliminary report was called and/or faxed to Dr. Garcia's office. Interpretation Summary 1. No DVTright leg. 2. Successful ablation rightleg. Ordering Physician: Luis Garcia Performed By: Sung Thompson RVT
== END ==
PROVIDERS: Family Provider Nurse Practitioner Primary Care; PCP Nurse Practitioner Primary Care; Referring Provider Surgery Vascular Surgery; Visit Provider Surgery Vascular Surgery
DX: M79.89 Other specified soft tissue disorders (principal); I87.2 Venous insufficiency (chronic) (peripheral); M79.609 Pain in unspecified limb; G43.909 Migraine, unspecified, not intractable, without status migrainosus; I83.90 Asymptomatic varicose veins of unspecified lower extremity
CPT/HCPCS: 93971

== ENCOUNTER → 2019-08-13 09:57 | Outpatient (CLI) | payer MEDICAID, SELFPAY ==
[2019-04-24 06:15] VITALS: BMI 19.3
--- NOTE | 2019-08-13 10:00 | VDLE_ITS ---
Reason For Study: swelling RIGHT LEFT CFV is compressible, spontaneous, phasic, CFV is compressible, spontaneous, phasic, competent and demonstrates normal competent, and demonstrates normal augmentation. augmentation. FV is compressible, spontaneous, phasic, competent and demonstrates normal augmentation. POP V is compressible, spontaneous, phasic, competent and demonstrates normal augmentation. T/P Trunk is compressible. PTV is compressible. RT PerV is compressible. GSV is occluded fron the groin to the ankle S/P Varithena. Varicose veins are occluded S/P Varithena. Procedure Exam performed in department. The exam was diagnostic. Interpretation Summary 1. Right leg no DVT. 2. Successful ablation right saphenous and branches. Ordering Physician: Luis Garcia Performed By: Sung Thompson RVT
== END ==
PROVIDERS: Family Provider Nurse Practitioner Primary Care; PCP Nurse Practitioner Primary Care; Referring Provider Surgery Vascular Surgery; Visit Provider Surgery Vascular Surgery
DX: M79.89 Other specified soft tissue disorders (principal); I87.2 Venous insufficiency (chronic) (peripheral); M79.609 Pain in unspecified limb; G43.909 Migraine, unspecified, not intractable, without status migrainosus; I83.90 Asymptomatic varicose veins of unspecified lower extremity
CPT/HCPCS: 93971